=== PATIENT | female | born 1985 | race Two or more races ===

== ENCOUNTER 2021-12-01 14:39 | Inpatient (IN) | payer MEDICAID, OTHER ==
[~2021-12-01] VITALS: Ht 162.6 cm; Wt 82.6 kg
[2021-12-01] MEDS ORDERED: OXYTOCIN 30 UNITS/500ML NS PMX 500 ML IV SCH (15:30)
[2021-12-01] MEDS ORDERED: LIDOCAINE HCL 1% 20ML VIAL (Pyxis) INJ INFIL SCH (15:30)
[2021-12-01] MEDS ORDERED: BUTORPHANOL TARTRATE 2 MG/ML VIAL IV PRN (15:30)
[2021-12-01] MEDS ORDERED: METHYLERGONOVINE MALEATE 0.2 MG/ML IM PRN (15:30)
[2021-12-01] MEDS: LACTATED RINGERS 1,000 ML IV SCH ×2 (15:57→18:31)
[2021-12-01 16:32] LABS: CLARITY URINE TURBID (CLEAR); COLOR URINE DARK YELLOW (YELLOW); KETONES URINE 1+ (NEGATIVE); LEUKOCYTE ESTERASE URINE 1+ (NEGATIVE); NITRITE URINE NEGATIVE (NEGATIVE); OCCULT BLOOD URINE NEGATIVE (NEGATIVE); PROTEIN URINE 1+ (NEGATIVE); SPECIFIC GRAVITY URINE 1.032 (1.005-1.030)
[2021-12-01 16:48] LABS: BASOPHILS % 0.1 % (0.0-2.0); EOSINOPHILS % 1.2 % (0.0-5.0); HEMATOCRIT. 26.5 % (36.0-48.0); HEMOGLOBIN. 8.8 g/dL (12.0-16.0); LYMPHOCYTES % 18.6 % (20.0-50.0); MEAN CORPUSCULAR HEMOGLOBIN 29.3 pg (28.0-32.0); MEAN CORPUSCULAR VOLUME 88.2 fL (81.0-99.0); MONOCYTES % 6.1 % (2.0-8.0); PLATELET 158 x1000/uL (130-400); RED BLOOD CELL COUNT 3.01 mill/uL (4.2-5.4); RED CELL DISTRIBUTION WIDTH 14.6 % (11.6-14.6)
[2021-12-01 17:00] LABS: *AMPHETAMINES SCREEN URINE NEGATIVE (NEGATIVE); *BARBITURATES SCREEN URINE NEGATIVE (NEGATIVE); *BENZODIAZEPINES SCREEN URINE NEGATIVE (NEGATIVE); *COCAINE SCREEN URINE NEGATIVE (NEGATIVE); CANNABINOID URINE SCREEN NEGATIVE (NEGATIVE); METHADONE URINE SCREEN NEGATIVE (NEGATIVE); OPIATES URINE SCREEN NEGATIVE (NEGATIVE); PHENCYCLIDINE URINE SCREEN NEGATIVE (NEGATIVE)
[2021-12-01 17:00] LABS: PARTIAL THROMBOPLASTIN TIME 26.4 sec (23.4-31.0); PROTHROMBIN TIME 10.4 sec (9.6-11.0)
[2021-12-01] MEDS ORDERED: PENICILLIN G POTASSIUM 5 MMU in DEXT 5% WATER 100 ML IV NR (17:00)
[2021-12-01 17:27] LABS: HEPATITIS B SURFACE ANTIGEN NEGATIVE
[2021-12-01] MEDS ORDERED: ROPIVACAINE HCL/PF EPIDURAL 200 ML EPI SCH (18:45)
[2021-12-01] MEDS: PENICILLIN G POTASSIUM 2.5 MMU in DEXTROSE 5% WATER 50 ML IV SCH (22:40)
[2021-12-01] MEDS: ONDANSETRON HCL 4MG/2ML INJ IV PRN (23:11)
[2021-12-02] MEDS ORDERED: ROPIVACAINE HCL/PF EPIDURAL 200 ML EPI ONE (00:02)
[2021-12-02] MEDS ORDERED: FENTANYL CITRATE/PF 50MCG/ML 2ML VIAL ONE (00:03)
[2021-12-02] MEDS: LACTATED RINGERS 1,000 ML IV SCH ×3 (00:53→08:31)
[2021-12-02] MEDS ORDERED: LIDOCAINE HCL 2%/EPINEPHRINE 1:100,000 20 ML VIAL INFIL ONE (01:00)
[2021-12-02] MEDS: PENICILLIN G POTASSIUM 2.5 MMU in DEXTROSE 5% WATER 50 ML IV SCH ×2 (02:39→06:55)
[2021-12-02] MEDS: ONDANSETRON HCL 4MG/2ML INJ IV PRN (06:57)
[2021-12-02] MEDS ORDERED: TERBUTALINE SULFATE 1MG/ML VIAL SUBCUT PRN (07:00)
[2021-12-02] MEDS ORDERED: PHENYLEPHRINE HCL 10 MG/ML 1ML (IV VIAL) IV ONE (08:59)
[2021-12-02] MEDS ORDERED: KETAMINE HCL 50 MG/ML 10ML ONE (09:00)
[2021-12-02] MEDS ORDERED: PROPOFOL 200MG/20ML VIAL IV ONE (09:01)
[2021-12-02] MEDS ORDERED: DEXAMETHASONE 4MG/ML 1ML VIAL ONE (09:06)
[2021-12-02] MEDS ORDERED: ONDANSETRON HCL 4MG/2ML INJ ONE (09:06)
[2021-12-02] MEDS ORDERED: CEFAZOLIN SODIUM 1000MG/VIAL ONE (09:06)
[2021-12-02] MEDS ORDERED: OXYTOCIN 10 UNITS/ML 1ML ONE (09:06)
[2021-12-02] MEDS ORDERED: MORPHINE SULFATE/PF 1MG/ML 10ML AMP ONE (09:09)
[2021-12-02] MEDS ORDERED: MIDAZOLAM HCL 2 MG/2 ML VIAL ONE (09:42)
[2021-12-02] MEDS ORDERED: OXYTOCIN 30 UNITS/500ML NS PMX 500 ML IV SCH (10:15)
[2021-12-02] MEDS ORDERED: HEMORRHOIDAL SUPP PR PRN (10:15)
[2021-12-02] MEDS ORDERED: ONDANSETRON HCL 4MG/2ML INJ IV PRN (10:15)
[2021-12-02] MEDS ORDERED: LANOLIN OINT 7GM TUBE TOP PRN (10:15)
[2021-12-02] MEDS ORDERED: RHO(D) IMMUNE GLOBULIN 300 MCG/SYR IM PRN (10:15)
[2021-12-02] MEDS ORDERED: BISACODYL 10MG SUPP PR PRN (10:15)
[2021-12-02] MEDS ORDERED: IBUPROFEN 400MG TABLET PO PRN (10:15)
[2021-12-02] MEDS ORDERED: DIPHENHYDRAMINE 25MG CAPSULE PO PRN (10:15)
[2021-12-02 13:30] VITALS: BP 115/66
[2021-12-02 14:00] VITALS: BP 114/68
[2021-12-02] MEDS ORDERED: KETOROLAC 30MG/ML VIAL IV PRN (14:00)
[2021-12-02] MEDS ORDERED: FENTANYL CITRATE/PF 50MCG/ML 2ML VIAL IV PRN (14:00)
[2021-12-02] MEDS ORDERED: NALOXONE HCL 0.4 MG/ML 1ML VIAL IV PRN (14:00)
[2021-12-02] MEDS ORDERED: MORPHINE SULFATE 10 MG/ML CPJ IV PRN (14:00)
[2021-12-02 16:10] VITALS: BP 112/65
[2021-12-02 20:00] VITALS: BP 114/69
[2021-12-03 00:15] VITALS: BP 116/66
[2021-12-03 03:30] VITALS: BP 100/58
[2021-12-03] MEDS: IBUPROFEN 800MG TABLET PO PRN ×3 (03:46→18:03)
[2021-12-03] MEDS: LACTATED RINGERS 1,000 ML IV SCH ×3 (03:46→20:45)
[2021-12-03 06:52] LABS: BASOPHILS % 0.1 % (0.0-2.0); EOSINOPHILS % 0.6 % (0.0-5.0); LYMPHOCYTES % 16.8 % (20.0-50.0); MEAN CORPUSCULAR HEMOGLOBIN 29.4 pg (28.0-32.0); MEAN CORPUSCULAR VOLUME 87.7 fL (81.0-99.0); MEAN PLATELET VOLUME 10.2 fl (7.4-10.4); MONOCYTES % 7.5 % (2.0-8.0); PLATELET 160 x1000/uL (130-400); RED BLOOD CELL COUNT 2.32 mill/uL (4.2-5.4); RED CELL DISTRIBUTION WIDTH 14.5 % (11.6-14.6)
[2021-12-03 07:30] LABS: HEMATOCRIT. 20.4 % (36.0-48.0); HEMOGLOBIN. 6.8 g/dL (12.0-16.0)
[2021-12-03] MEDS: MAGNESIUM/ALUMINUM HYDROXIDE/SIMETHICONE 30ML UDC PO SCH ×4 (07:30→20:44)
[2021-12-03 08:00] VITALS: BP 114/69
[2021-12-03] MEDS: SIMETHICONE 80MG TABLET CHEW PO SCH ×4 (08:00→20:44)
[2021-12-03] MEDS: FERROUS SULFATE 325MG TABLET PO SCH ×3 (09:00→17:55)
[2021-12-03] MEDS: PRENATAL VIT/FE FUMARATE/FA TABLET PO SCH (09:00)
[2021-12-03 12:00] VITALS: BP 92/47
[2021-12-03 16:00] VITALS: BP 97/53
[2021-12-03] MEDS: ACETAMINOPHEN WITH CODEINE 300/30MG TABLET PO PRN (19:18)
[2021-12-03 20:00] VITALS: BP 110/58
[2021-12-03 20:04] LABS: BASOPHILS % 0.1 % (0.0-2.0); EOSINOPHILS % 0.8 % (0.0-5.0); LYMPHOCYTES % 15.4 % (20.0-50.0); MEAN CORPUSCULAR HEMOGLOBIN 28.8 pg (28.0-32.0); MEAN CORPUSCULAR VOLUME 89.6 fL (81.0-99.0); MONOCYTES % 5.6 % (2.0-8.0); NEUTROPHILS % 78.1 % (40.0-76.0); PLATELET 154 x1000/uL (130-400); RED BLOOD CELL COUNT 2.09 mill/uL (4.2-5.4); RED CELL DISTRIBUTION WIDTH 14.8 % (11.6-14.6)
[2021-12-03 20:06] LABS: HEMATOCRIT. 18.7 % (36.0-48.0)
[2021-12-03 20:22] LABS: CLARITY URINE CLEAR (CLEAR); COLOR URINE YELLOW (YELLOW); KETONES URINE TRACE (NEGATIVE); LEUKOCYTE ESTERASE URINE NEGATIVE (NEGATIVE); NITRITE URINE NEGATIVE (NEGATIVE); OCCULT BLOOD URINE 1+ (NEGATIVE); PROTEIN URINE NEGATIVE (NEGATIVE); SPECIFIC GRAVITY URINE 1.008 (1.005-1.030); UROBILINOGEN URINE 0.2 E.U./dL (0.2-1.0)
[2021-12-03] MEDS: DOCUSATE SODIUM 100MG CAPSULE PO SCH (20:43)
[2021-12-03] MEDS: PHENAZOPYRIDINE HCL 100MG TABLET PO SCH (20:44)
[2021-12-04] MEDS: ACETAMINOPHEN WITH CODEINE 300/30MG TABLET PO PRN ×2 (01:20→08:48)
[2021-12-04 04:00] VITALS: BP 100/52
[2021-12-04 06:47] LABS: BASOPHILS % 0.1 % (0.0-2.0); EOSINOPHILS % 0.9 % (0.0-5.0); HEMATOCRIT. 21.9 % (36.0-48.0); LYMPHOCYTES % 14.9 % (20.0-50.0); MEAN CORPUSCULAR HEMOGLOBIN 29.4 pg (28.0-32.0); MEAN CORPUSCULAR VOLUME 88.9 fL (81.0-99.0); MEAN PLATELET VOLUME 10.4 fl (7.4-10.4); MONOCYTES % 5.7 % (2.0-8.0); NEUTROPHILS % 78.4 % (40.0-76.0); PLATELET 198 x1000/uL (130-400); RED BLOOD CELL COUNT 2.46 mill/uL (4.2-5.4)
[2021-12-04 07:38] LABS: HEMOGLOBIN. 7.2 g/dL (12.0-16.0)
[2021-12-04] MEDS: SIMETHICONE 80MG TABLET CHEW PO SCH ×3 (08:49→21:22)
[2021-12-04] MEDS: MAGNESIUM/ALUMINUM HYDROXIDE/SIMETHICONE 30ML UDC PO SCH ×2 (08:49→14:55)
[2021-12-04] MEDS: PRENATAL VIT/FE FUMARATE/FA TABLET PO SCH (08:49)
[2021-12-04] MEDS: PHENAZOPYRIDINE HCL 100MG TABLET PO SCH ×3 (08:50→21:21)
[2021-12-04] MEDS: FERROUS SULFATE 325MG TABLET PO SCH ×2 (08:50→15:44)
[2021-12-04 09:37] VITALS: BP 105/60
[2021-12-04] MEDS ORDERED: IRON SUCROSE COMPLEX 100 MG/5 ML ML IV NR (11:30)
[2021-12-04] MEDS: NITROFURANTOIN 100MG M/M CAPSULE PO SCH (14:54)
[2021-12-04] MEDS: IBUPROFEN 800MG TABLET PO PRN (14:54)
[2021-12-04 20:00] VITALS: BP 104/63
[2021-12-04] MEDS: DOCUSATE SODIUM 100MG CAPSULE PO SCH (21:21)
[2021-12-05] MEDS: IBUPROFEN 800MG TABLET PO PRN ×2 (00:15→09:01)
[2021-12-05 04:00] VITALS: BP 100/50
[2021-12-05 07:47] LABS: MEAN CORPUSCULAR HEMOGLOBIN 29.5 pg (28.0-32.0); MEAN CORPUSCULAR VOLUME 91.5 fL (81.0-99.0); PLATELET 189 x1000/uL (130-400); RED BLOOD CELL COUNT 2.03 mill/uL (4.2-5.4); RED CELL DISTRIBUTION WIDTH 15.6 % (11.6-14.6)
[2021-12-05 08:00] VITALS: BP 114/65
[2021-12-05 08:20] LABS: HEMATOCRIT 18.6 % (36.0-48.0)
[2021-12-05] MEDS: PRENATAL VIT/FE FUMARATE/FA TABLET PO SCH (09:00)
[2021-12-05] MEDS: FERROUS SULFATE 325MG TABLET PO SCH (09:00)
[2021-12-05 09:01] VITALS: BP 100/50
[2021-12-05] MEDS: PHENAZOPYRIDINE HCL 100MG TABLET PO SCH (09:08)
[2021-12-05] MEDS: NITROFURANTOIN 100MG M/M CAPSULE PO SCH (09:08)
== END 2021-12-05 13:10 | disposition home or self-care (01) | DRG 539 ==
LOC: 8 EST LDRP 14:39 → OBSVTOIN 14:40 → 8EST 12-02 14:08
PROVIDERS: ADMIT Obstetrics & Gynecology; ATTEND Obstetrics & Gynecology
PROC: 10D00Z1 Extraction of Products of Conception, Low, Open Approach (ICD-10-PCS; principal; 2021-12-01)
PROC: 0UB70ZZ Excision of Bilateral Fallopian Tubes, Open Approach (ICD-10-PCS; 2021-12-02)
DX: O69.0XX0 Labor and delivery complicated by prolapse of cord, not applicable or unspecified (principal); D62 Acute posthemorrhagic anemia; O48.0 Post-term pregnancy; Z37.0 Single live birth; Z3A.40 40 weeks gestation of pregnancy; O90.81 Anemia of the puerperium; Z20.822 Contact with and (suspected) exposure to COVID-19; O36.8330 Maternal care for abnormalities of the fetal heart rate or rhythm, third trimester, not applicable or unspecified
CPT/HCPCS: 36415; 76805; 80051; 80305; 81003; 85025; 85027; 86592; 86703; 86762; 86850; 86900; 87340; 87426; 88302; 88307; 99281; G0378; J0595; J0690; J1100; J1885; J2250; J2274; J2370; J2405; J2540; J2704; J2795; J3010; J3490; J7060; J7120; A4315; J2590